=== PATIENT | male | born 1975 | race Caucasian/White ===

== ENCOUNTER 2021-11-20 07:58 | Emergency (ER) | payer OTHER | END 2021-11-20 09:10 | disposition home or self-care (01) | LOC: CSHERS 07:58 → EDBD 07:58 → CSHERS 09:10 | DX: R55 Syncope and collapse (principal); R10.2 Pelvic and perineal pain; M79.605 Pain in left leg; I10 Essential (primary) hypertension; V89.2XXA Person injured in unspecified motor-vehicle accident, traffic, initial encounter | CPT/HCPCS: 70450; 71045; 72170 ==